=== PATIENT | female | born 1935 | race African-American/Black ===

== ENCOUNTER 2024-06-08 11:32 | Outpatient (CLI) | payer MEDICARE, MEDICAID | END 2024-06-08 11:33 | disposition home or self-care (01) | LOC: CSHCT 11:32 | PROVIDERS: ATTEND Nurse Practitioner Family | DX: D33.2 Benign neoplasm of brain, unspecified (principal); G93.89 Other specified disorders of brain; J34.9 Unspecified disorder of nose and nasal sinuses | CPT/HCPCS: 70450; 82565 ==